=== PATIENT | male | born 1980 | race African-American/Black ===

== ENCOUNTER 2017-11-26 20:46 | Emergency (ER) | payer OTHER ==
--- NOTE | 2017-11-27 01:22 | ED PSYCHIATRIC COMPLAINT ---
History of Present Illness General Chief Complaint: General Adult Stated Complaint: PT IS DEPRESSED Source: patient Exam Limitations: no limitations Vital Signs & Intake/Output Vital Signs & Intake/Output Vital Signs Date Time Temp Pulse Resp B/P B/P Pulse O2 O2 Flow FiO2 Mean Ox Delivery Rate 11/27 1123 98.5 82 20 128/80 97 Room Air 11/27 0947 97.2 75 20 126/61 99 Room Air 11/27 0612 96.4 82 18 117/57 98 Room Air 11/27 0126 98 Room Air 11/27 0027 97.2 85 18 105/63 98 Room Air 11/26 2059 98.2 108 20 138/73 ED Intake and Output 11/27 0000 11/26 1200 Intake Total Output Total Balance Patient 227 lb Weight Allergies Coded Allergies: Penicillins (RASH 11/26/17) Triage Note: PER PT DEPRESSED X 1 YR DENIES SI/HI "TODAY " BUT WAS IN PAST. Triage Nurses Notes Reviewed? yes Onset: Gradual Duration: week(s):, waxing and waning Timing: recent history Severity: mild, moderate HPI: 37 YO gentleman presents with depression, seeking a consultation by psychiatry. He shares that, "My life is a Metaconomy song... I lost my job... I lost my house... I'm ... I've been living out of my car.... I'm just real depressed." He denies SI/HI/hallucinations. He drank one shot of whiskey. He is otherwise well. (Yanique GOLDMAN,Luis Duvall) Reconcile Medications No Known Home Medications (Julianna GOLDMAN,Valentin Perez) Past History Travel History Traveled to [place] past 21 day No Medical History Any Pertinent Medical History? see below for history Neurological: NONE EENT: NONE Cardiovascular: NONE Respiratory: NONE Gastrointestinal: NONE Hepatic: NONE Renal: NONE Musculoskeletal: NONE Psychiatric: NONE Endocrine: NONE Surgical History Surgical History: none Psychosocial History What is your primary language Bhutanese Tobacco Use: Never used Family History Hx Contributory? No (Yanique GOLDMAN,Luis Duvall) Review of Systems Review of Systems Constitutional: Reports: no symptoms. EENTM: Reports: no symptoms. Respiratory: Reports: no symptoms. Cardiovascular: Reports: no symptoms. GI: Reports: no symptoms. Genitourinary: Reports: no symptoms. Musculoskeletal: Reports: no symptoms. Skin: Reports: no symptoms. Neurological/Psychological: Reports: no symptoms. Hematologic/Endocrine: Reports: no symptoms. Immunologic/Allergic: Reports: no symptoms. All Other Systems: Reviewed and Negative (Yanique GOLDMAN,Luis Duvall) Physical Exam Physical Exam General Appearance: well developed/nourished, mild distress Head: atraumatic Eyes: Bilateral: PERRL, EOMI. Ears, Nose, Throat: normal pharynx, normal ENT inspection, hearing grossly normal Neck: normal inspection, supple Respiratory: normal breath sounds Cardiovascular: regular rate/rhythm Gastrointestinal: soft, non-tender Extremities: normal range of motion Neurological/Psychiatric: no motor/sensory deficits, awake, agitated, alert, normal mood/affect Appearance/Memory/Insight: appropriate appearance, appropriate insight Behavoir/Eye Contact/Speech: cooperative Skin: intact, normal color, warm/dry SAD PERSONS SAD PERSONS Response Value Male Sex? yes 1 Depression/Hopelessness? yes 2 Single//? yes 1 Social Support? has no support 1 Total 5 SAD PERSONS Done? patient not suicidal (Yanique GOLDMAN,Luis Duvall) Progress Differential Diagnosis: drug intoxication, depression vs other. Plan of Care: Orders Procedure Date/time Status Regular Diet 11/28 B Active URINE DRUG SCREEN FOR ER ONLY 11/27 120 Complete ETHANOL 11/27 120 Complete COMPREHENSIVE METABOLIC PANEL 11/27 120 Complete CBC WITHOUT DIFFERENTIAL 11/27 120 Complete ED CRISIS PSYCH CONSULT 11/27 120 Active Laboratory Tests 11/27/17 1131: Urine Opiates Screen < 100, Methadone Screen < 40, Barbiturate Screen < 60, Ur Phencyclidine Scrn < 6.00, Amphetamines Screen < 100, U Benzodiazepines Scrn < 85, Urine Cocaine Screen < 50, Urine Cannabis Screen < 5.00 11/27/17 0207: Anion Gap 14, Estimated GFR > 60, BUN/Creatinine Ratio 9.2, Glucose 87, Calcium 9.8, Total Bilirubin 0.7, AST 21, ALT 43, Alkaline Phosphatase 74, Total Protein 7.8, Albumin 4.7, Globulin 3.1, Albumin/Globulin Ratio 1.5, CBC w Diff NO MAN DIFF REQ, RBC 4.88, MCV 93.1, MCH 30.5, MCHC 32.8 L, RDW 12.6, MPV 8.3, Gran % 57.3, Lymphocytes % 33.4, Monocytes % 6.2, Eosinophils % 2.8, Basophils % 0.3, Absolute Granulocytes 5.6, Absolute Lymphocytes 3.3, Absolute Monocytes 0.6, Absolute Eosinophils 0.3, Absolute Basophils 0, Serum Alcohol < 10.0 Hand-Off Endorsed To: Valentin Levine MD Endorsed Time: 0700 Pending: consult, labs (Yanique GOLDMAN,Luis Duvall) Comments: 11/27/2017 1:30:51 PM patient signed out to me by Dr. Cahnel at shift change management consultant. Patient has been evaluated by the practice clinician felt to be stable for outpatient management. (Julianna GOLDMAN,Valentin Perez) Departure Departure Disposition: STILL A PATIENT Condition: Stable Clinical Impression Primary Impression: Depression Referrals: Jacob GOLDMAN,Raul Bartholomew (PCP/Family) Departure Forms: Customer Survey General Discharge Information (Yanique GOLDMAN,Luis Duvall) Departure Additional Instructions: Please follow-up with outpatient appointment tomorrow at 8:30 in the morning. Notify your primary care doctor of this emergency department visit and treatment plan. Return if any concerns or sudden worsening. Prescriptions: Current Visit Scripts No Known Home Medications (Julianna GOLDMAN,Valentin Perez)
[2017-11-27 02:28] LABS: ABSOLUTE BASOPHIL COUNT 0 /CUMM (0.0-0.2); ABSOLUTE EOSINOPHIL COUNT 0.3 /CUMM (0.0-0.7); ABSOLUTE GRANULOCYTE CT 5.6 /CUMM (1.4-6.5); ABSOLUTE LYMPH COUNT 3.3 /CUMM (1.2-3.4); ABSOLUTE MONOCYTE COUNT 0.6 /CUMM (0.10-0.60); BASOPHIL % 0.3 % (0.0-2.0); EOSINOPHIL % 2.8 % (0-5); GRANULOCYTE % 57.3 % (42.2-75.2); HEMATOCRIT 45.4 % (42-52); MEAN CORPUSCULAR HGB 30.5 PG (27.0-31.0); MEAN CORPUSCULAR HGB CONC 32.8 G/DL (33.0-37.0); MEAN CORPUSCULAR VOLUME 93.1 FL (80.0-94.0); MEAN PLATELET VOLUME 8.3 FL (7.4-10.4); PLATELET COUNT 291 /CUMM (130-400); RBC DISTRIBUTION WIDTH 12.6 % (11.5-14.5); RED BLOOD CELL CT 4.88 /CUMM (4.70-6.10); WHITE BLOOD CELL COUNT 9.8 /CUMM (4.8-10.8)
[2017-11-27 11:23] VITALS: BP 128/80
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
== END 2017-11-27 13:36 ==
LOC: ERH 20:46
PROVIDERS: Pediatrics
DX: F32.9 Major depressive disorder, single episode, unspecified (principal)
CPT/HCPCS: 80307; G0480